=== PATIENT | male | born 1975 | race Caucasian/White ===

== ENCOUNTER 2017-12-30 11:44 | Emergency (ER) | payer MEDICAID, SELFPAY ==
[2017-12-30 11:46] VITALS: BP 115/66; PULSE 79; RESP 16; TEMP 36.6; O2SAT 96; BMI 24.3
--- NOTE | 2017-12-30 12:08 | RAD_ITS ---
STUDY: X-RAY - LEFT FOOT CLINICAL: Male, 42 years old. DROPPED LOG ACROSS METATARSALS. TECHNIQUE: 3 view(s) of the foot. COMPARISON: None. FINDINGS: Normal talus, calcaneus, and tarsal bones. Normal visualized subtalar, talonavicular, calcaneocuboid, tarsal and tarsometatarsal articulations. Normal metatarsi. Normal metatarsophalangeal joint of the great toe. Normal tibial and fibular sesamoid bones. Normal interphalangeal joint of the great toe. Normal phalanges of the great toe. Normal second through fifth metatarsophalangeal joints. Normal interphalangeal joints and phalanges of the lesser toes. The soft tissue structures are unremarkable. RAD/Foot min 3 Views IMPRESSION: Normal x-ray examination of the foot. Electronically Signed: Debby De La Cruz MD at 12:28 EST Tel , Service support ,
--- NOTE | 2017-12-30 12:32 | ED.VISSUMM ---
- ER Visit Summary Date of Service: 12/30/17 Chief Complaint: [Injury to left foot] History of Present Illness: The patient is a 42 M presents the emergency department with complaint of left foot injury that occurred yesterday around 1 PM. Patient states that he was carrying a large log when he accidentally dropped it onto his left foot. Patient having a hard time bearing weight secondary to pain.] Physical Examination: [Left foot-patient has some mild soft tissue swelling and faint erythema over the dorsal proximal portion of the left foot. No obvious deformity. Patient nervously intact distally. No pain at the ankle.] Test Results: [X-rays of the left foot showed no fractures] Emergency Department Course and Treatment: [Patient was given an Ervin wrap and crutches as well as a dose of naproxen.] Treatment Plan: [Patient to ice and elevate the extremity. Patient given a prescription for naproxen for pain. Patient advised to follow-up with primary care physician circulation assistant for no doc within next 5-7 days.] Disposition: [Discharged to home in stable condition] Impression: [Contusion left foot] This note was generated with [employer] dictation software. It may contain incorrect words, spelling, and punctuation that were not noted in review of the chart prior to signing ED Disposition - Plan for ED Patient: Chief Complaint: Lower Extremity Injury Referrals: Care Physician,No Primary [Primary Care Provider] -
--- NOTE | 2017-12-30 12:34 | ED.DEP ---
ED Disposition - Plan for ED Patient: Chief Complaint: Lower Extremity Injury Instructions: ED Contusion Foot Prescriptions: Naproxen [Naprosyn] 500 mg PO BID PRN #20 tab Referrals: Care Physician,No Primary [Primary Care Provider] - Trinidad Antunez MD [STAFF PHYSICIAN] - 5-7 Days
[2017-12-30] MEDS: Naproxen 500 MG Tablet PO (12:36)
[2017-12-30 12:44] VITALS: BP 117/75; PULSE 63; RESP 16; O2SAT 97
--- NOTE | 2017-12-30 12:44 | ED.RN ---
REVIEWED D/C INSTRUCTIONS, FOLLOW UP CARE, PRESCRIPTION, AND S/S THAT WOULD WARRANT A RETURN TO THE ED WITH PT. PT VERBALIZED AN UNDERSTANDING AND DENIES FURTHER QUESTIONS FOR THIS RN. PT SKIN P/W/D, RESP EVEN AND UNLABORED, PT A&O X 3, NO DISTRESS NOTED. PT ASSISTED OUT OF ED IN WHEELCHAIR.
== END 2017-12-30 12:46 | disposition home or self-care (01) ==
LOC: ED 12:17
PROVIDERS: Emergency Provider Emergency Medicine
DX: S90.32XA Contusion of left foot, initial encounter (principal); Z72.0 Tobacco use; W20.8XXA Other cause of strike by thrown, projected or falling object, initial encounter; Y93.89 Activity, other specified; Y92.89 Other specified places as the place of occurrence of the external cause; Y99.8 Other external cause status
CPT/HCPCS: 73630; 99284

== ENCOUNTER 2018-05-17 17:04 | Emergency (ER) | payer MEDICAID, SELFPAY ==
[2018-05-17 17:05] VITALS: BP 132/82; PULSE 106; RESP 16; TEMP 36.9; O2SAT 98; BMI 24.4
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
[2018-05-17] MEDS: Ketorolac 60 MG/2 ML Vial IM (17:31)
--- NOTE | 2018-05-17 17:35 | RAD_ITS ---
STUDY: X-RAY - LEFT SHOULDER REASON FOR EXAM: Male, 43 years old. TECHNIQUE: 4 view(s) of the shoulder. COMPARISON: None. FINDINGS: Normal glenohumeral articulation. Normal acromioclavicular joint. Normal acromion. Ill-defined sclerotic lesion humeral head and neck. Normal humeral head and visualized proximal humerus. The soft tissue structures are unremarkable. Normal visualized pulmonary apex. RAD/Shoulder min 2 Views IMPRESSION: Possible bone infarct or enchondroma left shoulder. Follow-up MRI or bone scan may be helpful if clinically warranted. Electronically Signed: Sherif Valdivia MD at 18:00 EDT , Service support ,
[2018-05-17 18:16] VITALS: PULSE 97; RESP 16; O2SAT 96
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
== END 2018-05-17 18:45 | disposition home or self-care (01) ==
PROVIDERS: Emergency Provider Emergency Medicine
DX: S49.92XA Unspecified injury of left shoulder and upper arm, initial encounter (principal); Y04.8XXA Assault by other bodily force, initial encounter; Y93.9 Activity, unspecified; Y92.9 Unspecified place or not applicable; Z72.0 Tobacco use
CPT/HCPCS: 73030; 96372; 99283

== ENCOUNTER 2018-06-06 14:55 | Emergency (ER) | payer MEDICAID, SELFPAY ==
[2018-06-06 14:56] VITALS: BP 142/85; PULSE 88; RESP 18; TEMP 36.7; O2SAT 99; BMI 24.4
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
--- NOTE | 2018-06-06 15:31 | ED.DEP ---
ED Disposition - Plan for ED Patient: Chief Complaint: Upper Extremity Injury Instructions: ED Sprain Shoulder Prescriptions: Naproxen [Naprosyn] 500 mg PO BID PRN #20 tablet Cyclobenzaprine [Flexeril] 10 mg PO TID PRN #20 tablet PRN Reason: Muscle Spasm Referrals: Care Physician,No Primary [Primary Care Provider] - Usman Hernandez DO [STAFF PHYSICIAN] -
[2018-06-06 15:41] VITALS: BP 135/70; PULSE 85; RESP 14; O2SAT 99
[2018-06-06] MEDS: Ketorolac 60 MG/2 ML Vial IM (15:42)
[2018-06-06] MEDS: Orphenadrine 60 MG/2 ML Ampul IM (15:43)
== END 2018-06-06 15:54 | disposition home or self-care (01) ==
LOC: ED 15:44
PROVIDERS: Emergency Provider Emergency Medicine
DX: S43.402D Unspecified sprain of left shoulder joint, subsequent encounter (principal); Y09 Assault by unspecified means; Z72.0 Tobacco use
CPT/HCPCS: 96372; 99283

== ENCOUNTER 2018-07-02 22:06 | Emergency (ER) | payer MEDICAID, SELFPAY ==
[2018-07-02 22:06] VITALS: BP 144/69; PULSE 85; RESP 16; TEMP 36.9; O2SAT 96; BMI 25.0
[2018-07-02 23:13] VITALS: BP 114/70; PULSE 87; RESP 16; O2SAT 97
--- NOTE | 2018-07-02 23:30 | ED.DCSUM_ITS ---
- ER Visit Summary Date of Service: 07/02/18 Chief Complaint: Nausea, vomiting and diarrhea History of Present Illness: The patient is a 43 M no senior past medical history. No prior abdominal surgeries except for hernia repair. Patient states today around 3 PM started having nausea, vomiting and diarrhea. Abdominal cramping. She has been able to really hold very little fluids or food down since that time. He now has developed a mild headache. He feels dehydrated he states. Denies any fever. Patient states she has had about 6 episodes of vomiting and diarrhea since 3 PM. has similar symptoms. Physical Examination: Vital signs are stable afebrile. H EENT exam mildly dry mucous members. Neck nontender no lymphadenopathy. No meningismus. Lungs clear to auscultation bilaterally. Heart regular rhythm no murmur. Abdomen soft, nontender, nondistended normal bowel sounds no peritoneal signs. No masses. No obstruction. Moving all 4 extremities. Neurovascular intact. Back nontender. Skin no rashes. Neurologic exam awake alert no focal motor deficits. Test Results: None Emergency Department Course and Treatment: Patient treated as a viral gastroenteritis. A liter fluid. IV Zofran. P.o. challenge. If he is doing well be discharged home on repeat exam. Treatment Plan: Zofran home pack. Fluids and rest. Return if unable to keep fluids down. Disposition: Discharge Impression: Acute viral gastroenteritis Mild dehydration This note was generated with [employer] dictation software. It may contain incorrect words, spelling, and punctuation that were not noted in review of the chart prior to signing ED Disposition - Plan for ED Patient: Chief Complaint: Nausea/Vomiting/Diarrhea Referrals: Care Physician,No Primary [Primary Care Provider] -
--- NOTE | 2018-07-02 23:31 | DCINST.ED_ITS ---
ED Disposition - Plan for ED Patient: Disposition: Home or Assisted Living Chief Complaint: Nausea/Vomiting/Diarrhea Instructions: ED Gastroenteritis Viral Referrals: Yvonne Aguilar [NON-STAFF] - 1-2 Days if not improving Additional Instructions: Plenty of fluids and rest. Zofran as needed for nausea. [place] diet increase slowly as tolerated. Return if unable to keep fluids down or feeling worse.
[2018-07-02] MEDS: Ondansetron ODT 4 MG Tablet PO (23:57)
[2018-07-02] MEDS: 0.9% Normal Saline 1,000 ML 1000 ML IV (23:57)
[2018-07-02] MEDS: Ondansetron 4 MG/2 ML Vial IV (23:57)
--- NOTE | 2018-07-03 00:04 | ED.RN ---
received 1 L NS
== END 2018-07-03 00:13 | disposition home or self-care (01) ==
LOC: ED 23:39
PROVIDERS: Emergency Provider Emergency Medicine
DX: A08.4 Viral intestinal infection, unspecified (principal); E86.0 Dehydration; Z72.0 Tobacco use; Z79.899 Other long term (current) drug therapy
CPT/HCPCS: 96374; 99283; J7030; A4216; J2405

== ENCOUNTER 2018-09-13 16:58 | Emergency (ER) | payer MEDICAID, SELFPAY ==
[2018-09-13 16:59] VITALS: BP 121/79; PULSE 85; PULSE 86; RESP 17; TEMP 36.8; O2SAT 95; BMI 25.9
--- NOTE | 2018-09-13 19:13 | ED.VISSUMM ---
- ER Visit Summary Date of Service: 09/13/18 Chief Complaint: Back pain History of Present Illness: The patient is a 43 M presenting with back pain. Patient states it started this morning. He states he has been sleeping on an air mattress. He states this morning he woke up and the air mattress was deflated. He has taken Tylenol and ibuprofen at home. He denies bowel or bladder incontinence. Denies numbness or weakness. He is able to ambulate with pain. Denies other complaints. Physical Examination: Vitals are stable. Patient is afebrile. Alert no acute distress. HEENT exam is unremarkable. Neck is nontender Lungs are clear and equal bilaterally. Heart is regular rate and rhythm. Abdomen is soft nontender nondistended. Back: Left paraspinal thoracic muscle tenderness, no midline tenderness Extremities are unremarkable. Skin is warm and dry. No focal neurologic deficit. Normal strength and sensation Remainder of exam is unremarkable. Emergency Department Course and Treatment: Patient is given Toradol IM. Left rib series shows no acute process. On reevaluation, patient feels improved. He is given a prescription for naproxen. Advised to follow-up with Dr. Leahy conformal pad former for no doc. Advised return to ED for worsening complaints. Disposition: Discharge home Impression: Acute back pain This note was generated with [employer] dictation software. It may contain incorrect words, spelling, and punctuation that were not noted in review of the chart prior to signing ED Disposition - Plan for ED Patient: Chief Complaint: Back Instructions: ED Neck Back Pain General Prescriptions: Naproxen [Naprosyn] 500 mg PO BID PRN #20 tablet Referrals: Dutch Leahy MD [STAFF PHYSICIAN] -
--- NOTE | 2018-09-13 19:16 | ED.DCSUM_ITS ---
- ER Visit Summary Date of Service: 09/13/18 Chief Complaint: Back pain History of Present Illness: The patient is a 43 M presenting with back pain. Patient states it started this morning. He states he has been sleeping on an air mattress. He states this morning he woke up and the air mattress was deflat ed. He has taken Tylenol and ibuprofen at home. He denies bowel or bladder incontinence. Denies numbness or weakness. He is able to ambulate with pain. Denies other complaints. Physical Examination: Vitals are stable. Patient is afebrile. Alert no acute distress. HEENT exam is unremarkable. Neck is nontender Lungs are clear and equal bilaterally. Heart is regular rate and rhythm. Abdomen is soft nontender nondistended. Back: Left paraspinal thoracic muscle tenderness, no midline tenderness Extremities are unremarkable. Skin is warm and dry. No focal neurologic deficit. Normal strength and sensation Remainder of exam is unremarkable. Emergency Department Course and Treatment: Patient is given Toradol IM. Left rib series shows no acute process. On reevaluation, patient feels improved. He is given a prescription for naproxen. Advised to follow-up with Dr. Leahy superintendent concrete mixing [employer] for no doc. Advised return to ED for worsening complaints. Disposition: Discharge home Impression: Acute back pain This note was generated with [employer] dictation software. It may contain incorrect words, spelling, and punctuation that were not noted in review of the chart prior to signing ED Disposition - Plan for ED Patient: Chief Complaint: Back Instructions: ED Neck Back Pain General Prescriptions: Naproxen [Naprosyn] 500 mg PO BID PRN #20 tablet Referrals: Dutch Leahy MD [STAFF PHYSICIAN] -
[2018-09-13] MEDS: Ketorolac 60 MG/2 ML Vial IM (19:20)
--- NOTE | 2018-09-13 19:20 | RAD_ITS ---
STUDY: X-RAY - UNILATERAL RIBS ( LEFT ) WITH CHEST REASON FOR EXAM: Male, 43 years old. Left rib pain after waking up this morning. TECHNIQUE - RIBS: 4 view(s) of the ribs. TECHNIQUE - CHEST: 1 COMPARISON: None. FINDINGS - RIBS: Normal visualized ribs without a demonstrated fracture. FINDINGS - CHEST: The heart is mildly enlarged. Hilar and mediastinal shadows are normal. There is no pleural effusion, pulmonary consolidation, or pneumothorax. There is no osseous abnormality. RAD/Ribs Uni Min 3V w/PA Chest IMPRESSION: RIBS: Normal x-ray examination of the ribs. CHEST: Normal x-ray examination of the chest. Electronically Signed: Isi Roth MD at 19:59 EDT Tel , Service support ,
[2018-09-13 20:23] VITALS: BP 139/81; PULSE 76; RESP 18; O2SAT 96
--- NOTE | 2018-09-13 20:23 | ED.DEP ---
ED Disposition - Plan for ED Patient: Chief Complaint: Back Instructions: ED Neck Back Pain General Prescriptions: Naproxen [Naprosyn] 500 mg PO BID PRN #20 tablet Referrals: Dutch Leahy MD [STAFF PHYSICIAN] -
== END 2018-09-13 20:41 | disposition home or self-care (01) ==
LOC: ED 18:43
PROVIDERS: Emergency Provider Emergency Medicine
DX: M54.6 Pain in thoracic spine (principal); Z72.0 Tobacco use
CPT/HCPCS: 71101; 96372; 99282

== ENCOUNTER 2018-09-14 10:54 | Emergency (ER) | payer MEDICAID, SELFPAY ==
[2018-09-14 10:54] VITALS: BP 145/89; PULSE 80; RESP 14; TEMP 36.8; O2SAT 93; BMI 30.8
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
[2018-09-14 13:07] VITALS: BP 139/70; PULSE 58; RESP 14; O2SAT 98
== END 2018-09-14 13:07 | disposition home or self-care (01) ==
PROVIDERS: Emergency Provider Emergency Medicine
DX: S16.1XXA Strain of muscle, fascia and tendon at neck level, initial encounter (principal); Z79.899 Other long term (current) drug therapy; V43.62XA Car passenger injured in collision with other type car in traffic accident, initial encounter; Y93.I9 Activity, other involving external motion; Y92.410 Unspecified street and highway as the place of occurrence of the external cause; Y99.8 Other external cause status
CPT/HCPCS: 72125; 99284

== ENCOUNTER 2019-10-24 13:06 | Emergency (ER) | payer MEDICAID, SELFPAY ==
[2019-10-24 13:07] VITALS: BP 123/79; PULSE 82; RESP 17; TEMP 36.8; O2SAT 98; BMI 29.1
[2019-10-24 14:10] VITALS: RESP 18
--- NOTE | 2019-10-24 14:25 | ED.VISSUMM ---
- ER Visit Summary Date of Service: 10/24/19 Chief Complaint: [Soft tissue swelling to right groin] History of Present Illness: The patient is a 44 M [to the emergency department with a swelling to the right groin that he noticed yesterday. Patient states that he gets abscesses in his armpits frequently but is never had one in his groin. He denies any fevers. He denies any trauma to the area.] Physical Examination: [HEENT-PERRLA, EOMI. Cranial nerves II through XII grossly intact. TMs clear. Mucous membranes moist. No adenopathy. Cardiovascular-regular rate and rhythm without murmur or ectopy Lungs-clear to auscultation, chest wall stable without crepitus or subcu emphysema Abdomen-normoactive bowel sounds, soft, nontender, no rebound or rigidity, no peritoneal signs. Extremities-intact ?4, normal range of motion, normal pulses, atraumatic. Right groin-patient has soft tissue swelling consistent with an abscess with some faint erythema. Area is indurated and not much fluctuance.] Test Results: [None indicated] Emergency Department Course and Treatment: [Patient was consented for incision and drainage of suspected abscess. I had a discussion with him about antibiotics only versus attempted I&D given that this is suspected to be quite early and may just be inflammatory at this time. Patient would like to proceed with incision and drainage. Area sterilely draped and prepped. Locally anesthetized with 1% lidocaine total 4 cc. Using an 11 blade a 2 cm incision was made with only small amount of purulent debris obtained. Used curved hemostats undermined the soft tissues. I irrigated the cavity with normal saline.] She was started on Keflex and Bactrim. Treatment Plan: [Will be treated with Keflex and Bactrim. Patient will be referred to Dr. Govea for follow-up] Disposition: [Discharged home in stable condition.] Impression: [Right groin abscess with incision and drainage] This note was generated with [employer] dictation software. It may contain incorrect words, spelling, and punctuation that were not noted in review of the chart prior to signing ED Disposition - Plan for ED Patient: Referrals: Care Physician,No Primary [Primary Care Provider] -
--- NOTE | 2019-10-24 14:28 | DCINST.ED_ITS ---
ED Disposition - Plan for ED Patient: Instructions: ABSCESS, Incision and Drainage Prescriptions: Smz/Tmp Ds [Bactrim Ds] 1 tab PO BID #20 tab Prescription Printed Cephalexin [Keflex] 500 mg PO Q6 #40 cap Prescription Printed Hydrocodone Bitart/Apap 5-325 [[place] 5MG-325MG] 1 tab PO Q4H PRN PRN 2 Days #10 tab PRN Reason: Pain Prescription Printed Referrals: Care Physician,No Primary [Primary Care Provider] - Francisco Javier Govea MD [STAFF PHYSICIAN] - 3-5 Days
[2019-10-24] MEDS: Cephalexin 250 MG Capsule 500 MG PO (14:52)
[2019-10-24 14:53] VITALS: RESP 18
[2019-10-24] MEDS: Smz/Tmp Ds Tablet 1 TABLET PO (14:53)
== END 2019-10-24 14:54 | disposition home or self-care (01) ==
LOC: ED 13:46
PROVIDERS: Emergency Provider Emergency Medicine
DX: L02.214 Cutaneous abscess of groin (principal); Z72.0 Tobacco use
CPT/HCPCS: 10060; 99283

== ENCOUNTER 2020-04-20 09:11 | Emergency (ER) | payer MEDICAID, SELFPAY ==
[2020-04-20 09:14] VITALS: BP 135/94; PULSE 90; RESP 17; TEMP 36.6; O2SAT 94; BMI 27.8
--- NOTE | 2020-04-20 09:33 | ED.VIS.GEN ---
History of Present Illness Chief Complaint: Abscess Narrative: Patient presenting for evaluation due to concern for an abscess of the right anterior thigh. Patient reports that over the course of about the last 2 to 3 days he has had development of this. He states that it initially started as a spider bite but then he reports that he had some spreading redness, increased pain, and he feels as if there is a pustule coming to the surface. Patient states that he has a moderate amount of pain that is worse with walking and palpation. Patient reports that he has had multiple prior similar episodes in the past, that have required drainage. He denies any fevers. Denies any underlying history of immunosuppression or diabetes. He denies any constitutional symptoms such as nausea vomiting generalized malaise. Review of systems otherwise negative. Past Medical History - Allergies and Home Meds Allergies/Adverse Reactions: Allergies bacitracin [From Neosporin ([id number])] Allergy (Verified 04/20/20 09:13) Rash bacitracin zinc [From Neosporin ([id number]-[id number])] Allergy (Verified 04/20/20 09:13) Rash neomycin sulfate [From Neosporin (vhi-iuz-dkicn)] Allergy (Verified 04/20/20 09:13) Rash polymyxin B [From Neosporin ([id number])] Allergy (Verified 04/20/20 09:13) Rash Primary Care Physician: Alon Gordon MD [Primary Care Provider] - Prior records reviewed: Yes Past Medical History: - - Prior history of cutaneous abscesses requiring drainage Smoking Status: Current every day smoker Review of Systems All systems negative except as indicated General: Denies: Chills, Fever, Sweats Eyes: Denies: Visual changes - bilaterally, Diplopia ENT: Denies: Rhinorrhea, Sore throat Cardiovascular: Denies: Chest pain, Palpitations Respiratory: Denies: Dyspnea, Cough, Dyspnea on exertion Gastrointestinal: Denies: Abdominal pain, Nausea, Vomiting, Diarrhea, Melena, Hematochezia Genitourinary: Denies: Dysuria, Hematuria, Frequency Musculoskeletal: Denies: Back pain, Extremity Pain Skin: Reports: Abscess Neurological: Denies: Headache, Weakness, Numbness Physical Exam Vital Signs/Narrative: Vital Signs Temp Pulse Resp BP Pulse Ox 04/20/20 09:14 97.8 F 90 17 135/94 H 94 Inital Vital Signs reviewed: Yes General: Well nourished, Well developed, No Acute Distress Head: Normocephalic, Atraumatic Eyes: EOMI ENT: Moist mucous membranes Cardiovascular: Regular rate, Regular rhythm Respiratory: No distress Extremities: - - Examination of the patient's right thigh shows a pustule on the anterior portion of the thigh with approximately 4 cm of surrounding erythema. There is induration in the erythematous area and potentially some fluctuance in the central portion. No lymphangitic streaking. No subcutaneous emphysema. Normal range of motion of the knee and hip. Normal distal sensation and pulses. Skin: Normal color, No rash Neurological: Alert, Oriented x3 Psychological: Normal affect Diagnostic/Tx/Re-eval - Medical Decision Making Patient presented with a soft tissue skin infection of the anterior thigh. There does appear to potentially be some fluctuance in the central portion of this, so incision and drainage was performed as in the procedure note. This also seems to be associated with a cellulitis, patient will be placed on a course of Bactrim. He will follow-up with primary care. Procedures Procedure(s): Patient was verbally consented for incision and drainage procedure of the right thigh cutaneous abscess. Area was prepped with a alcohol prep and then was draped in a sterile fashion. 5 cc of 1% lidocaine were utilized for anesthesia and a field block technique with good anesthesia being obtained. 11 blade scalpel was utilized and a small cruciate incision was placed over top of the pustule and area of fluctuance. A very scant amount of purulent material was expressed. There was bloody expression after that. The wound was explored with hemostats, and was found to be very shallow without any tunneling. Wound was then irrigated under pressure with sterile saline. Wound was dressed with an absorbent dressing, patient tolerated this well. ED Disposition - Plan for ED Patient: Disposition: Home or Assisted Living Diagnosis: Abscess of right thigh Instructions: ED Abscess Incision And Drainage Prescriptions: Smz/Tmp Ds [Bactrim Ds] 1 tab PO BID #14 tab Prescription Printed Naproxen [Naprosyn] 500 mg PO BID #14 tab Prescription Printed Referrals: Alon Gordon MD [Primary Care Provider] - 2 Days for wound check
[2020-04-20 09:37] VITALS: BP 135/94; PULSE 90; RESP 17; TEMP 36.6; O2SAT 94
== END 2020-04-20 09:52 | disposition home or self-care (01) ==
LOC: ED 09:50
PROVIDERS: Emergency Provider Emergency Medicine; PCP Family Medicine
DX: L02.415 Cutaneous abscess of right lower limb (principal); F17.200 Nicotine dependence, unspecified, uncomplicated
CPT/HCPCS: 10060; 99282

== ENCOUNTER 2021-04-08 10:54 | Emergency (ER) | payer MEDICAID, SELFPAY ==
[2021-04-08 10:55] VITALS: BP 136/89; PULSE 67; RESP 18; TEMP 36.6; O2SAT 96; BMI 27.5
[2021-04-08 10:57] VITALS: BP 136/89; PULSE 67; PULSE 72; RESP 18; TEMP 36.6; O2SAT 95; O2SAT 97
--- NOTE | 2021-04-08 11:12 | EX.ED.VIS.FL ---
HPI History of Present Illness Chief Complaint: Complaint Narrative Narrative: Patient presents with dysuria and frequency. This is been ongoing for 2 to 3 days. He is denying any penile discharge. He has no testicular pain. He has no pain with bowel movements he has no rectal pain. He has no flank pain. He is denying fevers or chills or any abdominal pain. He does feel like he completely empties his bladder after urinating. [facility] Medical History (Updated 04/08/21 @ 12:[address] Alli Howard MD) GERD (gastroesophageal reflux disease) Home Medications omeprazole 20 mg PO DAILY 04/08/21 [History Last Taken Unknown] sulfamethoxazole-trimethoprim [Bactrim DS] 1 tab PO BID #14 tab 04/08/21 [Rx Last Taken Unknown] Allergy/AdvReac Type Severity Reaction Status Date / Time bacitracin Allergy Rash Verified 04/08/21 10:55 [From Neosporin ([id number])] bacitracin zinc Allergy Rash Verified 04/08/21 10:55 [From Neosporin (gcl-pen-[id number])] neomycin sulfate Allergy Rash Verified 04/08/21 10:55 [From Neosporin (guf-dnb-rflue)] polymyxin B Allergy Rash Verified 04/08/21 10:55 [From Neosporin (sng-nzc-[id number])] Social History Smoking Status: Current every day smoker ROS ROS ED ROS Narrative Past medical history: Reviewed Medications: Reviewed Social history: Noncontributory Review of systems: All systems negative except as indicated General: No fever Eyes: No visual changes ENT: No upper airway congestion, normal voice Neck: No neck pain Cardiovascular: No chest pain Respiratory: No shortness of breath or cough Gastrointestinal: No abdominal pain, nausea vomiting or diarrhea Genitourinary: Dysuria and frequency, some urgency is also present no hematuria Musculoskeletal: Denies myalgias no difficulty with ambulation Skin: No rash Neurological: No memory loss, confusion or any focal weakness Psych: No recent behavioral changes Hematologic: No easy bleeding or easy bruising EXAM Physical Exam Narrative Exam Narrative: Physical exam General: Patient does not appear in any distress Head: Normocephalic, Atraumatic ENT: Moist mucous membranes Cardiovascular: Regular rate, Regular rhythm Respiratory: No distress, CTA bilaterally Abdomen: Soft, Nontender, Nondistended. No suprapubic pain : Normal external genitalia no penile discharge. No testicle pain to palpation. Back: Nontender, Normal Inspection. Negative for: CVA tenderness Extremities: Nontender, No edema Skin: Normal color, No rash Neurological: Alert, Normal Strength, Normal Sensation Psychological: Normal affect Const Vital Signs: 04/08/21 10:55 04/08/21 10:57 Temperature 97.9 F 97.9 F Temperature Source Temporal Axillary Pulse Rate 67 72 Respiratory Rate 18 18 Blood Pressure 136/89 H 136/89 H Blood Pressure Mean 104 104 Pulse Ox 96 95 Oxygen Delivery Method Room Air Room Air MDM MDM MDM Narrative Medical decision making narrative: Patient has a slight urinary tract infection. I specifically asked him about chlamydia or gonorrhea he is denying any risk factors. He does not want treated for this but he is agreeable to at least getting testing. At this time there is no evidence of prostatitis, kidney stones, or epididymitis. Lab Data Labs: Laboratory Results - last 24 hr 04/08/21 04/08/21 11:42 11:42 Urine Color Yellow Urine Clarity Clear Urine pH 7.0 Ur Specific [place] 1.010 Urine Protein Negative Urine Glucose (UA) Normal Urine Ketones Negative Urine Occult Blood 10 H Urine Nitrite Negative Urine Bilirubin Negative Urine Urobilinogen 1 H Ur Leukocyte Esterase 25 H Urine RBC 0 SEEN Urine WBC 0 SEEN Ur Squamous Epith Cells 0 SEEN Urine Bacteria 0 SEEN Urine Mucus 0 SEEN Chlamydia DNA (KARLOS) Cancelled N.gonorrhoeae DNA (KARLOS) Cancelled Discharge Plan Triage Chief Complaint: Complaint ED Provider: Alli Howard Dx/Rx/DC Orders Clinical Impression: Urinary tract infection Instructions: ED Bladder Infection, Male (Adult) Prescriptions: New sulfamethoxazole-trimethoprim [Bactrim DS] 800-160 mg tablet 1 tab PO BID Qty: 14 RF: 0 No Action omeprazole 20 mg capsule,delayed release(DR/EC) 20 mg PO DAILY RF: 0 Primary Care Provider: Alon Gordon Referrals: Alon Gordon MD [Primary Care Provider] - 2 Days Disposition Disposition: Home, self care
[2021-04-08 11:48] LABS: Bacteria 0 SEEN /hpf (None Seen); Mucous, Urine 0 SEEN /hpf (<or=2+); Red Blood Cells-Urine 0 SEEN /hpf (0-5); Squamous Epithelial Cells - UA 0 SEEN /hpf (0-5); White Blood Cells 0 SEEN /hpf (0-5)
[2021-04-08 11:50] LABS: Color, Urine Yellow (Yellow); Glucose, Dipstick Normal (Normal); Ketone-Dipstick Negative (Negative); Leukocyte Esterase-Dipstick 25 /ul (Negative); Nitrite-Dipstick Negative (Negative); Occult Blood-Urine 10 /ul (Negative); Protein-Dipstick Negative (Negative); Urine Bilirubin Dipstick Negative (Negative); Urine Clarity Clear (Clear); Urine Urobilinogen 1 mg/dl (Normal)
[2021-04-08 15:22] LABS: Chlamydia Trachomatis by PCR Negative (Negative); Neisserai gonorrhoeae by PCR Negative (Negative); Probe Check PASS; Sample Adequacy Control PASS; Specimen Processing Control PASS
== END 2021-04-08 12:40 | disposition home or self-care (01) ==
PROVIDERS: Emergency Provider Emergency Medicine; PCP Family Medicine
DX: N39.0 Urinary tract infection, site not specified (principal); K21.9 Gastro-esophageal reflux disease without esophagitis; Z79.899 Other long term (current) drug therapy; F17.200 Nicotine dependence, unspecified, uncomplicated
CPT/HCPCS: 81001; 87491; 87591; 99282

== ENCOUNTER 2021-11-15 14:52 | Emergency (ER) | payer MEDICAID, SELFPAY ==
[2021-11-15 14:53] VITALS: BP 130/88; PULSE 91; RESP 16; TEMP 36.6; O2SAT 94; BMI 28.8
--- NOTE | 2021-11-15 15:05 | RAD_ITS ---
INDICATION: INJURY 4TH TOE EXAMINATION/TECHNIQUE: X-RAY - LEFT XR Foot Min 3 Views 3 VIEWS COMPARISON: 12/30/2017. FINDINGS: SOFT TISSUES: No soft tissue swelling or gas. No radiopaque foreign body. BONES/JOINTS: No acute fracture or subluxation.. Normal alignment. Preservation of the joint space.. No sclerotic or destructive changes observed. RAD/Foot min 3 Views IMPRESSION: No evidence of acute osseous abnormality. Electronically Signed: Lawrence Leon MD at 15:43 EST Tel , Service support ,
--- NOTE | 2021-11-15 16:24 | EDS_ITS ---
HPI History of Present Illness Chief Complaint: Lower Extremity Injury Informant: patient Narrative Narrative: Patient states that he got his left fourth toe caught under 1 of those chairs that have the legs connected front to back. No other injury. There is discomfort with weightbearing or motion. Rest makes it better. He is not on anticoagulation. [facility] Medical History GERD (gastroesophageal reflux disease) Home Medications omeprazole 20 mg PO DAILY 04/08/21 [History Last Taken Unknown] naproxen 500 mg PO BID #14 tab 11/15/21 [Rx Last Taken Unknown] Allergy/AdvReac Type Severity Reaction Status Date / Time bacitracin Allergy Rash Verified 11/15/21 14:53 [From Neosporin (gih-xno-qrorw)] bacitracin zinc Allergy Rash Verified 11/15/21 14:53 [From Neosporin (gtw-mlw-ttlea)] neomycin sulfate Allergy Rash Verified 11/15/21 14:53 [From Neosporin (lbv-swa-slxsj)] polymyxin B Allergy Rash Verified 11/15/21 14:53 [From Neosporin ([id number]-zuh-[id number])] Social History Smoking Status: Current every day smoker tobacco type: cigarettes ROS ROS ED Constitutional Constitutional ED: Denies fever(s) Musculoskeletal Musculoskeletal: Reports other Details: Left fourth toe pain. See history of present illness. ; Denies back pain Integumentary Reports other Details: Contusion left fourth toe ; Denies abscess or Abrasions Hematologic/Lymphatic Hematologic/Lymphatic: Denies easy bleeding or easy bruising EXAM Physical Exam Const Vital Signs: 11/15/21 14:53 Temperature 97.9 F Temperature Source Temporal Pulse Rate 91 Respiratory Rate 16 Blood Pressure 130/88 H Blood Pressure Mean 102 Pulse Ox 94 Oxygen Delivery Method Room Air Positive well nourished and well developed General Appearance ED: well developed and NAD Resp normal respiratory effort Extremity Extremity Narrative: Patient has contusion and very mild swelling of the distal portion of the left fourth toe. No deformity rotational or angular. No p roximal tenderness. No sign of infection. Neuro Sensorium / Orientation: alert Skin Skin Narrative: Contusion to left fourth toe but no erythema or warmth. MDM MDM MDM Narrative Medical decision making narrative: X-ray looked at by me and read by radiology shows no sign of acute fracture or dislocation. Patient will be given a few Naprosyn for pain. He was told ice rest and elevation are appropriate. Radiography Diagnostic Testing: Clinical Impression(s) from Imaging Studies Foot X-Ray 11/15/21 15:05 IMPRESSION: No evidence of acute osseous abnormality. Electronically Signed: Lawrence Leon MD at 15:43 EST Tel , Service support , Discharge Plan Triage Chief Complaint: Lower Extremity Injury ED Provider: Rickey Villaseñor Dx/Rx/DC Orders Clinical Impression: Contusion of fourth toe, left Instructions: ED Crush Injury, Foot/Toe Prescriptions: New naproxen 500 MG tablet 500 mg PO BID Qty: 14 RF: 0 No Action omeprazole 20 mg capsule,delayed release(DR/EC) 20 mg PO DAILY RF: 0 Primary Care Provider: Alon Gordon Referrals: Alon Gordon MD [Primary Care Provider] - 10-14 Days if not better Disposition Disposition: Home, Self Care
== END 2021-11-15 16:34 | disposition home or self-care (01) ==
PROVIDERS: Emergency Provider Emergency Medicine; PCP Family Medicine
DX: S90.122A Contusion of left lesser toe(s) without damage to nail, initial encounter (principal); W23.0XXA Caught, crushed, jammed, or pinched between moving objects, initial encounter; Y92.9 Unspecified place or not applicable; Y99.9 Unspecified external cause status; K21.9 Gastro-esophageal reflux disease without esophagitis; F17.210 Nicotine dependence, cigarettes, uncomplicated; Z79.1 Long term (current) use of non-steroidal anti-inflammatories (NSAID)
CPT/HCPCS: 73630; 99282

== ENCOUNTER 2021-12-28 12:20 | Emergency (ER) | payer MEDICAID, SELFPAY ==
[2021-12-28 12:21] VITALS: BP 143/92; PULSE 105; RESP 18; TEMP 35.8; O2SAT 95; BMI 27.1
--- NOTE | 2021-12-28 13:54 | CT_ITS ---
STUDY: CT ABDOMEN AND PELVIS WITH CONTRAST REASON FOR EXAM: Male, 46 years old. Perirectal abscess RADIATION DOSAGE (If Supplied By Facility): CTDIvol = ( 13.40 ) mGy, DLP = ( 996.02 ) mGycm TECHNIQUE: Transaxial images were obtained from the dome of the diaphragm to the symphysis pubis without oral contrast. IV 100mL Isovue-300 was administered. Sagittal and coronal images were reconstructed. Individualized dose optimization techniques were used for this CT. COMPARISON: None. FINDINGS: Minimal degree of increased markings at the left lung base suggestive of either linear atelectasis and/or scar The visualized portions of the heart are within normal limits. Normal liver. Normal gallbladder and extrahepatic biliary system. Normal spleen. Normal pancreas. Normal bilateral adrenal glands. Normal right kidney. There is a 3.9 cm x 3.8 cm cyst in the lateral inferior pole of the left kidney. There is a small hiatal hernia. Normal small intestine. Normal colon. The appendix is visualized and appears normal. Normal abdominal aorta. Normal inferior vena cava. Normal retroperitoneum. Normal urinary bladder. Mild degree of increased markings in the subcutaneous fat along the medial aspect of the right gluteal area in the posterior perineum. There is evidence of a 2.3 cm x 1.3 cm well-defined hypodensity within the soft tissue swelling suggestive of a small abscess. Moderate sized bilateral inguinal hernias. There is a 1.7 cm cyst in the L2 vertebrae posteriorly. CT/Abdomen/Pelvis W IV Cont ONLY IMPRESSION: 2.3 cm x 1.3 cm well-defined hypodensity in the medial aspect of the right gluteal region along the posterior aspect of the perineum suggestive of a small abscess. Moderate size bilateral inguinal hernias containing fat. Electronically Signed: Toño Marroquin MD at 15:07 EST ,
[2021-12-28] MEDS: 0.9% Normal Saline 1,000 ML 1000 ML IV (14:13)
[2021-12-28] MEDS: Morphine 4 MG/ML Syringe IV (14:13)
[2021-12-28] MEDS: Ondansetron 4 MG/2 ML Vial IV (14:13)
[2021-12-28 14:15] VITALS: BP 121/72; PULSE 71; RESP 14; O2SAT 96
[2021-12-28 14:16] LABS: Absolute Lymphocyte Count 2.29 X10^3/uL (0.83-4.51); Absolute Neutrophil Count 10.3 X10^3/uL (2.0-7.7); Basophil# 0.07 X10^3/uL; Basophil% 0.5 % (0-1); Eosinophil# 0.37 X10^3/uL; Eosinophils% 2.6 % (0-5); Hematocrit 47.9 % (40-54); Hemoglobin 17.1 g/dL (13.0-16.5); Lymphocyte # 2.29 X10^3/ul (0.83-4.51); Lymphocyte % 15.9 % (19-41); Mean Corp Hgb Conc 35.7 g/dL (32-36); Mean Corpuscular Hgb 31.5 pg (27.0-32.0); Mean Corpuscular Volume 88.4 fL (80-94); Mean Platelet Vol. 11.7 fl (6.2-12.0); Monocyte# 1.35 X10^3/uL; Monocyte% 9.4 % (0-10); NRBC Flagged by Analyzer 0 % (0-5); Neutrophil # 10.29 X10^3/uL (2.7-7.7); Neutrophil % 71.2 % (47-70); Platelet Count 216 K/mm3 (150-450); RBC Distribution Width CV 12.5 % (11.6-14.6); RBC Distribution Width SD 40.4 fl (35.1-43.9); Red Blood Count 5.42 M/mm3 (4.6-6.2); White Blood Count 14.4 K/mm3 (4.4-11.0)
[2021-12-28 14:30] LABS: Anion Gap 5 (5-15); BUN 6 mg/dL (7-18); BUN/Creat Ratio 7.2 RATIO (10-20); Calcium,Total 9.9 mg/dL (8.5-10.1); Chloride 109 mmol/L (98-107); Creatinine, Serum 0.84 mg/dL (0.70-1.30); EST Glomerular Filtration Rate 105 mL/min (>60); Est Glom Filt Rate - Afr Amer 127 mL/min (>60); Estimated Creatinine Clearance 121.89 ml/min; Glucose 93 mg/dL (74-106); Potassium 3.8 mmol/L (3.5-5.1); Sodium Level 138 mmol/L (136-145)
[2021-12-28 14:41] LABS: Lactic Acid 0.8 mmol/L (0.4-1.9)
--- NOTE | 2021-12-28 15:37 | EDS_ITS ---
HPI History of Present Illness Chief Complaint: Abscess Informant: patient Narrative Narrative: Patient is a 46-year-old male with history of perirectal abscesses presenting with pain, swelling and redness of his perirectal area for the past 2 days. He states he cannot sit down since yesterday. Is not taking anything for pain prior to arrival. He states he often times will get these out but they will pop and drain on their own. Sometimes he is required antibiotics. He denies any systemic symptoms such as fever or chills. No other complaints at this time. He is not a diabetic. Patient denies any difficulty urinating or defecation. Prior similar symptoms: Yes PFSH PFSH Medical History GERD (gastroesophageal reflux disease) Home Medications omeprazole 20 mg PO DAILY 04/08/21 [History Last Taken Unknown] naproxen 500 mg PO BID #14 tab 11/15/21 [Rx Last Taken Unknown] clindamycin HCl 300 mg PO 4X/DAY #80 cap 12/28/21 [Rx Last Taken Unknown] oxycodone-acetaminophen [Percocet] 1 tab PO Q6H PRN 3 Days #10 tab 12/28/21 [Rx Last Taken Unknown] Allergy/AdvReac Type Severity Reaction Status Date / Time bacitracin Allergy Rash Verified 12/28/21 12:21 [From Neosporin ([id number])] bacitracin zinc Allergy Rash Verified 12/28/21 12:21 [From Neosporin ([id number]-[id number])] neomycin sulfate Allergy Rash Verified 12/28/21 12:21 [From Neosporin ([id number]-yzc-jzhjo)] polymyxin B Allergy Rash Verified 12/28/21 12:21 [From Neosporin ([id number])] Social History Smoking Status: Current every day smoker tobacco type: cigarettes ROS ROS ED Constitutional Constitutional ED: Denies chills or fever(s) Eyes Eyes: Denies change in vision Cardiovascular Cardiovascular: Denies chest pain Respiratory/Chest Respiratory/Chest: Denies cough or dyspnea Gastrointestinal Gastrointestinal: Denies abdominal pain, constipation, diarrhea, nausea or vomiting Genitourinary Genitourinary ED: Denies dysuria Musculoskeletal Musculoskeletal: Denies arthralgias or myalgias Integumentary Reports abscess Neurologic Neurologic: Denies headache(s) or weakness EXAM Physical Exam Const Vital Signs: 12/28/21 12:21 12/28/21 14:15 Temperature 96.4 F L Temperature Source Temporal Pulse Rate 105 H 71 Respiratory Rate 18 14 Blood Pressure 143/92 H 121/72 H Blood Pressure Mean 109 88 Pulse Ox 95 96 Oxygen Delivery Method Room Air Room Air Positive well nourished and well developed Constitutional Narrative: Uncomfortable. General Appearance ED: well developed and NAD HEENT Reports moist mucous membranes Negative for trauma Eyes PERRL and EOMs intact bilaterally Neck supple Chest Wall inspection of chest normal Resp normal respiratory effort and clear to auscultation bilaterally Cardio regular rate, regular rhythm and no murmurs GI normal to inspection, nondistended, normoactive bowel sounds Back/Spine no CVA tenderness Extremity normal to inspection General Extremety ED: Negative for edema or tenderness General Extremity: Negative for edema Neuro oriented x3 Sensorium / Orientation: alert Motor Exam: Negative for general weakness Psych mental status grossly normal Skin Skin Narrative: Patient has 2 cm x 2 cm area of erythema and induration with a central area of fluctuance in the right buttocks just next to the rectum. It does not seem to extend into the rectum. There is a slight amount of streaking towards the perineum but there is no involvement of the perineum or the testicles. No active drainage appreciated. MDM MDM MDM Narrative Medical decision making narrative: Patient is evaluated for pain, redness and swelling of his perirectal region. Presentation is consistent with pararectal abscess. He does have a mild leukocytosis of 14.4. His lactate is normal. Initially he is hypertensive and tachycardic however I suspect this is more of a pain reaction than infectious. He is given a dose of IV Unasyn in the ER. CT obtained to rule out any deeper abscess and a it shows a 2.3 cm by 1.3 cm well- defined hypodensity the medial aspect of the right gluteal region along the pos terior aspect of the perineum suggestive of a small abscess. I&D will be performed by myself. Patient will be placed on Bactrim and Keflex and discharged home with a short course of pain medication. He is given a dose of morphine in the ER for pain control. Lab Data Labs: Laboratory Results - last 24 hr 12/28/21 12/28/21 12/28/21 14:05 14:05 14:05 WBC 14.4 H RBC 5.42 Hgb 17.1 H Hct 47.9 MCV 88.4 MCH 31.5 MCHC 35.7 RDW Std Deviation 40.4 RDW Coeff of Juan A 12.5 Plt Count 216 MPV 11.7 Immature Gran % (Auto) 0.400 Neut % (Auto) 71.2 H Lymph % (Auto) 15.9 L Roberts % (Auto) 9.4 Eos % (Auto) 2.6 Baso % (Auto) 0.5 Absolute Neuts (auto) 10.3 H Absolute Lymphs (auto) 2.29 Nucleated RBC % 0 Sodium 138 Potassium 3.8 Chloride 109 H Carbon Dioxide 24.0 Anion Gap 5 BUN 6 L Creatinine 0.84 Estim Creat Clear Calc 121.89 Est GFR (MDRD) Af Amer 127 Est GFR (MDRD) Non-Af 105 BUN/Creatinine Ratio 7.2 L Glucose 93 Lactic Acid 0.8 Calcium 9.9 Radiography Diagnostic Testing: Clinical Impression(s) from Imaging Studies Abdomen/Pelvis CT 12/28/21 13:54 IMPRESSION: 2.3 cm x 1.3 cm well-defined hypodensity in the medial aspect of the right gluteal region along the posterior aspect of the perineum suggestive of a small abscess. Moderate size bilateral inguinal hernias containing fat. Electronically Signed: Toño Marroquin MD at 15:07 EST Reading Location ID and State: [facility] / [place] , Service support , Procedures Other Procedures Procedure(s): Incision and drainage Area anesthetized with 1% lidocaine with epinephrine. Once adequate analgesia was achieved a stab incision used to make 1 cm incision over the area maximal fluctuance. There was immediate expression of foul-smelling white/clayton material. Some of the material was quite thick and caseous so I do question if this could be an infected sebaceous cyst. Area is irrigated and explored with hemostats. Packing was placed. Patient tolerated procedure. Discharge Plan Triage Chief Complaint: Abscess ED Provider: Lena Rolon Dx/Rx/DC Orders Clinical Impression: Abscess, perirectal, Leukocytosis Instructions: ED ABSCESS Deann-Anal IandD Prescriptions: New clindamycin HCl 150 MG capsule 300 mg PO 4X/DAY Qty: 80 RF: 0 oxycodone-acetaminophen [Percocet] 5-325 mg tablet 1 tab PO Q6H PRN (Reason: pain) 3 Days Qty: 10 RF: 0 No Action omeprazole 20 mg capsule,delayed release(DR/EC) 20 mg PO DAILY RF: 0 naproxen 500 MG tablet 500 mg PO BID Qty: 14 RF: 0 Primary Care Provider: Alon Gordon Referrals: Kike Bills MD [STAFF PHYSICIAN] - As Needed Alon Gordon MD [Primary Care Provider] - Activity Restrictions/Additional Instructions: Packing was placed into the abscess. It should fall out on its own but if it does not, it can be removed gently in 3 days Disposition Disposition: Home, Self Care
[2021-12-28] MEDS: Lidocaine 1% (20 ml mdv) 20 ML Vial INFILT (15:57)
[2021-12-28 16:00] VITALS: BP 133/72; PULSE 79; RESP 15; O2SAT 97
== END 2021-12-28 23:59 | disposition home or self-care (01) ==
PROVIDERS: Emergency Provider Emergency Medicine; PCP Family Medicine; Visit Provider Emergency Medicine
DX: K61.1 Rectal abscess (principal); D72.829 Elevated white blood cell count, unspecified; K21.9 Gastro-esophageal reflux disease without esophagitis; F17.210 Nicotine dependence, cigarettes, uncomplicated; Z79.899 Other long term (current) drug therapy
CPT/HCPCS: 46040; 10060; 74177; 80048; 83605; 85025; 96361; 96365; 96375; 99283; J7030; J7050; Q9967; A4216; J0295; J2405

== ENCOUNTER 2022-10-25 12:23 | Emergency (ER) | payer MEDICAID, SELFPAY ==
[2022-10-25 12:24] VITALS: BP 127/86; PULSE 95; RESP 16; TEMP 37; O2SAT 97; BMI 27.1
--- NOTE | 2022-10-25 13:07 | CT_ITS ---
STUDY: CT ABDOMEN AND PELVIS WITH CONTRAST REASON FOR EXAM: Male, 47 years old. Perirectal Abscess RADIATION DOSAGE (If Supplied By Facility): CTDIvol = ( 17.33 ) mGy, DLP = ( 1334.42 ) mGycm TECHNIQUE: Transaxial images were obtained from the dome of the diaphragm to the symphysis pubis without oral contrast. IV 100mL Isovue-300 was administered. Sagittal and coronal images were reconstructed. Individualized dose optimization techniques were used for this CT. COMPARISON: Comparison is made with prior study dated 12/28/2021. FINDINGS: Minimal degree of dependent bibasilar atelectasis. The visualized portions of the heart are within normal limits. There is decreased attenuation of the liver consistent with steatosis. Normal gallbladder and extrahepatic biliary system. Normal spleen. Normal pancreas. Normal bilateral adrenal glands. Normal right kidney. There is a 4.2 cm x 4.1 cm cyst in the lower pole of the left kidney. Normal visualized stomach. Normal small intestine. There are scattered colonic diverticula consistent with diverticulosis. The appendix is visualized and appears normal. Normal abdominal aorta. Normal inferior vena cava. Normal retroperitoneum. Normal urinary bladder. Small bilateral inguinal hernias containing fat more prominent on the right side. Normal osseous structures. CT/Abdomen/Pelvis W IV Cont ONLY IMPRESSION: Fatty infiltration of the liver. Stable left renal cyst. Scattered sigmoid diverticula. Electronically Signed: Toño Marroquin MD at 13:51 EST ,
--- NOTE | 2022-10-25 13:09 | EX.ED.DYSGE1 ---
HPI History of Present Illness Chief Complaint: Abscess Narrative Narrative: 47-year-old male who denies significant past medical history presents with 4 to 5 days of perirectal pain. He is not diabetic. He does not take daily medications. He denies any fevers or chills. No nausea or vomiting. He states he is not having pain with bowel movement but feels pressure mainly on the right side of his buttocks. He is unable to visualize the area but his fianc?e states that she noticed a lot of redness mainly on the right side of his buttocks cleft. He has pain with movement and states that it is difficult for him to sit. [facility] Medical History GERD (gastroesophageal reflux disease) Home Medications omeprazole 20 mg capsule,delayed release 20 mg PO DAILY 04/08/21 [History Last Taken Unknown] amoxicillin 875 mg-potassium clavulanate 125 mg tablet 1 tab PO BID #20 tabs 10/25/22 [Rx Last Taken Unknown] hydrocodone-acetaminophen 5-325mg 5mg-325mg 1 tab PO Q6H PRN pain 3 days #12 tabs 10/25/22 [Rx Last Taken Unknown] Allergy/AdvReac Type Severity Reaction Status Date / Time bacitracin Allergy Rash Verified 10/25/22 12:28 [From Neosporin ([id number])] bacitracin zinc Allergy Rash Verified 10/25/22 12:28 [From Neosporin ([id number])] neomycin sulfate Allergy Rash Verified 10/25/22 12:28 [From Neosporin ([id number])] polymyxin B Allergy Rash Verified 10/25/22 12:28 [From Neosporin ([id number])] Social History Smoking Status: Current every day smoker tobacco type: cigarettes ROS ROS ED ROS Narrative Constitutional: No fever, no chills. HEENT: No sore throat. No neck pain. No loss of vision. No rhinorrhea. Cardiovascular: No chest pain. No palpitations. No pedal edema. Respiratory: No cough, no shortness of breath. Abdominal: No abdominal pain. No nausea. No vomiting. Positive right-sided buttocks pain, perirectal area. No pain with actual bowel movement. Genitourinary: No dysuria. No hematuria. Musculoskeletal: No myalgias. No arthralgias. Neurologic: No headaches. No dizziness. No lightheadedness. Skin: No rash. No change in color. Psychiatric: No depression. No anxiety. EXAM Physical Exam Narrative Exam Narrative: Afebrile. Vital signs noted. Nontoxic-appearing. HEENT: Normocephalic. Atraumatic. PERRL, EOMI. Neck soft and supple. No point tenderness or step off. Cardiovascular: Regular rate and rhythm. No murmurs, rubs, or gallops appreciated. Respiratory: No tachypnea. Lungs clear to auscultation bilaterally. Gastrointestinal: Abdomen soft, nontender, with normoactive bowel sounds. No rebound or guarding. Inspection of the right buttocks cleft does reveal mild induration and tenderness with noted erythema. Upon examination there is now purulent drainage coming from the perirectal area. No rectal tenderness or fluctuance. Neurological: Awake. Alert. Nonfocal, nonlateralizing. Skin: No rash. Normal color. No pallor. Musculoskeletal: No pedal edema. Full range of motion extremities. Const Vital Signs: 10/25/22 12:24 10/25/22 13:48 Temperature 98.6 F Temperature Source Temporal Pulse Rate 95 Respiratory Rate 16 14 Blood Pressure 127/86 H 114/82 H Blood Pressure Mean 99 92 Pulse Ox 97 Oxygen Delivery Method Room Air MDM MDM MDM Narrative Medical decision making narrative: Given the large amount of swelling of the right buttocks and now with purulent drainage, comprehensive work-up was pursued. I will obtain a CBC and basic metabolic panel along with CT imaging with IV contrast to look for a deep perirectal abscess. He was started on Zosyn. CBC shows slightly elevated white count of 13.1, hemoglobin normal at 15.4 with normal platelet count of 296, chloride slightly elevated at 111, electrolytes otherwise unremarkable except for glucose of 110 and normal anion gap/low at 3. CT of the abdomen pelvis shows no mention of a perirectal abscess. I did discuss the patient indirectly with Dr. Gomez who has already reviewed the CT. He states that it is small, and that if incision and drainage needed to be performed could be done. I did look at his prior records and it was performed by the emergency physician. However, this abscess is already draining even with visual inspection. Patient received morphine for analgesia and feels markedly improved. As he already has a draining abscess, he did not want incision and drainage further performed. He will apply warm compresses. He will be placed on Augmentin and will follow-up with general surgery. I feel he can be discharged safely home with follow-up. Return instructions were reviewed. Disposition is discharged in stable condition. Lab Data Attestation: I reviewed the patient's lab results. Labs: Laboratory Results - last 24 hr 10/25/22 10/25/22 13:14 13:14 WBC 13.1 H RBC 5.04 Hgb 15.4 Hct 45.3 MCV 89.9 MCH 30.6 MCHC 34.0 RDW Std Deviation 38.6 RDW Coeff of Juan A 11.9 Plt Count 296 MPV 10.5 Immature Gran % (Auto) 0.600 Neut % (Auto) 69.7 Lymph % (Auto) 19.0 [place] % (Auto) 7.9 Eos % (Auto) 2.4 Baso % (Auto) 0.4 Absolute Neuts (auto) 9.2 H Absolute Lymphs (auto) 2.49 Nucleated RBC % 0 Sodium 140 Potassium 4.2 Chloride 111 H Carbon Dioxide 26.0 Anion Gap 3 L BUN 7 Creatinine 0.95 Estim Creat Clear Calc 106.64 Est GFR (MDRD) Af Amer 109 Est GFR (MDRD) Non-Af 90 BUN/Creatinine Ratio 7.3 L Glucose 110 H Calcium 10.0 Radiography Diagnostic Testing: Clinical Impression(s) from Imaging Studies Abdomen/Pelvis CT 10/25/22 13:07 IMPRESSION: Fatty infiltration of the liver. Stable left renal cyst. Scattered sigmoid diverticula. Electronically Signed: Toño Marroquin MD at 13:51 EST , Discharge Plan Triage Chief Complaint: Abscess ED Provider: Antonino Vo Dx/Rx/DC Orders Clinical Impression: Perirectal abscess, Abscess of gluteal cleft Prescriptions: New amoxicillin-pot clavulanate 875-125 mg tablet 1 tab PO BID Qty: 20 0RF hydrocodone-acetaminophen 5-325 mg tablet 1 tab PO Q6H PRN (Reason: pain) 3 Days Qty: 12 0RF No Action omeprazole 20 mg capsule,delayed release(DR/EC) 20 mg PO DAILY Label Comments: Take 1 capsule by mouth daily before breakfast. 1/2 hr before meal. Primary Care Provider: Care Physician,No Primary Referrals: Kurtis Gomez MD [Med Staff - Active Staff] - 3-5 Days Alon Gordon MD [[facility]] - Disposition Disposition: Home, Self Care
[2022-10-25] MEDS: Morphine 4 MG/ML Syringe IV (13:18)
[2022-10-25 13:26] LABS: Absolute Lymphocyte Count 2.49 X10^3/uL (0.83-4.51); Absolute Neutrophil Count 9.2 X10^3/uL (2.0-7.7); Basophil# 0.05 X10^3/uL; Basophil% 0.4 % (0-1); Eosinophil# 0.31 X10^3/uL; Eosinophils% 2.4 % (0-5); Hematocrit 45.3 % (40-54); Hemoglobin 15.4 g/dL (13.0-16.5); Lymphocyte # 2.49 X10^3/ul (0.83-4.51); Mean Corpuscular Hgb 30.6 pg (27.0-32.0); Mean Corpuscular Volume 89.9 fL (80-94); Mean Platelet Vol. 10.5 fl (6.2-12.0); Monocyte# 1.04 X10^3/uL; Monocyte% 7.9 % (0-10); NRBC Flagged by Analyzer 0 % (0-5); Neutrophil # 9.16 X10^3/uL (2.7-7.7); Neutrophil % 69.7 % (47-70); Platelet Count 296 K/mm3 (150-450); RBC Distribution Width CV 11.9 % (11.6-14.6); RBC Distribution Width SD 38.6 fl (35.1-43.9); Red Blood Count 5.04 M/mm3 (4.6-6.2); White Blood Count 13.1 K/mm3 (4.4-11.0)
[2022-10-25 13:39] LABS: Anion Gap 3 (5-15); BUN 7 mg/dL (7-18); BUN/Creat Ratio 7.3 RATIO (10-20); Chloride 111 mmol/L (98-107); Creatinine, Serum 0.95 mg/dL (0.70-1.30); EST Glomerular Filtration Rate 90 mL/min (>60); Est Glom Filt Rate - Afr Amer 109 mL/min (>60); Estimated Creatinine Clearance 106.64 ml/min; Glucose 110 mg/dL (74-106); Potassium 4.2 mmol/L (3.5-5.1); Sodium Level 140 mmol/L (136-145)
[2022-10-25 13:48] VITALS: BP 114/82; RESP 14
== END 2022-10-25 14:36 | disposition home or self-care (01) ==
PROVIDERS: Emergency Provider Emergency Medicine; Visit Provider Emergency Medicine
DX: L02.31 Cutaneous abscess of buttock (principal); K61.1 Rectal abscess; F17.210 Nicotine dependence, cigarettes, uncomplicated
CPT/HCPCS: 74177; 80048; 85025; 96365; 96375; 99283; J7050; Q9967; A4216

== ENCOUNTER 2023-06-12 15:06 | Emergency (ER) | payer MEDICAID, SELFPAY ==
[2023-06-12 15:07] VITALS: BP 123/83; PULSE 73; RESP 14; TEMP 36.2; O2SAT 98
--- NOTE | 2023-06-12 15:35 | EDS_ITS ---
HPI History of Present Illness Chief Complaint: Back Detail of Chief Complaint: Back injury Informant: patient Narrative Narrative: Patient presents to the emergency department with complaint of back pain after falling down steps. Patient states that he was coming down 5 on carpeted steps last evening around 5 PM when he slipped and fell and slid down his back. Patient denies any pain rating down his legs. He denies numbness or tingling in the extremities. Denies weakness to the extremities. He has been taking ibuprofen and Tylenol. Patient denies any hematuria. Pain worse with certain movements. PFSH PFS Medical History GERD (gastroesophageal reflux disease) Home Medications omeprazole 20 mg capsule,delayed release 20 mg PO DAILY 04/08/21 [History Last Taken Unknown] amoxicillin 875 mg-potassium clavulanate 125 mg tablet 1 tab PO BID #20 tabs 10/25/22 [Rx Last Taken Unknown] hydrocodone-acetaminophen 5-325mg 5mg-325mg 1 tab PO Q6H PRN pain 3 days #12 tabs 10/25/22 [Rx Last Taken Unknown] cyclobenzaprine 10 mg tablet 10 mg PO TID PRN Muscle Spasm #20 TABLETS 06/12/23 [Rx Last Taken Unknown] hydrocodone-acetaminophen 5-325mg 5mg-325mg 1 tab PO Q4H PRN PRN Pain 2 days #10 TABLETS 06/12/23 [Rx Last Taken Unknown] Allergy/AdvReac Type Severity Reaction Status Date / Time bacitracin Allergy Rash Verified 06/12/23 15:07 [From Neosporin ([id number])] bacitracin zinc Allergy Rash Verified 06/12/23 15:07 [From Neosporin ([id number])] neomycin sulfate Allergy Rash Verified 06/12/23 15:07 [From Neosporin ([id number])] polymyxin B Allergy Rash Verified 06/12/23 15:07 [From Neosporin ([id number])] Social History Smoking Status: Current every day smoker tobacco type: cigarettes ROS ROS ED Review of Systems ROS Unobtainable: other Constitutional Constitutional ED: Reports lethargy; Denies chills, fever(s), sweats or weight loss Eyes Eyes: Denies blurry vision, change in vision or diplopia ENT ENT ED: Denies rhinorrhea or sore throat Cardiovascular Cardiovascular: Denies chest pain, orthopnea or racing heartbeat Respiratory/Chest Respiratory/Chest: Denies cough, dyspnea, dyspnea on exertion, orthopnea or sputum Gastrointestinal Gastrointestinal: Denies abdominal pain, diarrhea, nausea or vomiting Genitourinary Genitourinary ED: Denies dysuria, hematuria or urinary frequency Musculoskeletal Musculoskeletal: Reports back pain; Denies arthralgias, myalgias or neck pain Integumentary Denies abscess, Abrasions or rash Neurologic Neurologic: Denies headache(s) or weakness Psychiatric Psychiatric: Denies anxiety, depression or suicidal thoughts Endocrine Endocrinology: Denies polydipsia, polyphagia or polyuria Hematologic/Lymphatic Hematologic/Lymphatic: Denies easy bleeding, easy bruising or lymphadenopathy Allergic/Immunologic Allergic/Immunologic ED: Denies mouth swelling, tongue swelling or urticaria EXAM Physical Exam Const Vital Signs: 06/12/23 15:07 Temperature 97.1 F L Temperature Source Temporal Pulse Rate 73 Respiratory Rate 14 Blood Pressure 123/83 H Blood Pressure Mean 96 Pulse Ox 98 Oxygen Delivery Method Room Air Positive well nourished and well developed General Appearance ED: well developed and NAD HEENT Reports TM's clear and moist mucous membranes normocephalic and atraumatic; Negative for trauma or tenderness Tympanic Membrane ED: Yes TM's clear Eyes PERRL and EOMs intact bilaterally General Eye ED: Negative for pale conjunctiva or scleral icterus Neck no lymphadenopathy, supple and no JVD General: Negative for tenderness Chest Wall inspection of chest normal and palpation of chest normal Chest: Negative for tenderness Resp normal respiratory effort and clear to auscultation bilaterally Effort and Inspection: Negative for respiratory distress or pain with movement Auscultation: Negative for rhonchi, wheezes or diminished lung sounds Cardio regular rate, regular rhythm, S1 normal heart sound, S2 normal heart sound and no murmurs Peripheral Pulses: pulses 2+ throughout GI normal to inspection, nondistended, normoactive bowel sounds, soft to palpation, non-tender, non-distended and no masses Back/Spine no CVA tenderness Back/Spine Narrative: Patient has no evidence of ecchymosis or bruising noted to his back. He has some lower lumbar tenderness on palpation over the L4 and L5 region. Patient al so with tenderness over the right lumbar paraspinal musculature and the right iliac crest. Deep tendon reflexes plus 2 out of 4 bilaterally at the patella Achilles. Patient has normal L5 extension. Patient has normal sensation to light touch. Normal strength Extremity normal to inspection General Extremety ED: Negative for edema General Extremity: Negative for edema Neuro oriented x3, CN's II-XII intact bilaterally, no sensory deficits noted and gait normal Sensorium / Orientation: awake, alert, oriented to person, oriented to place and oriented to time Motor Exam: strength 5/5 throughout and strength abnormal Psych mental status grossly normal Skin no rashes or lesions noted and no wounds MDM MDM MDM Narrative Medical decision making narrative: Patient presents with low back pain after a fall. X-rays of the lumbar spine and pelvis obtained interpreted by myself as no evidence of acute fractures or dislocations. Patient will be given a prescription for few [place] and prescription for Flexeril. He will be given referral to primary care physician for follow-up. He has no radiculopathic signs or symptoms. Patient advised to return if worsening pain, weakness to extremities, change in bowel or bladder function, or condition worsening way. Radiography Diagnostic Testing: Clinical Impression(s) from Imaging Studies Lumbar Spine X-Ray 06/12/23 15:46 IMPRESSION: No evidence of lumbar spinal fracture or spondylolisthesis. Electronically Signed: Isi Roth MD at 16:35 EDT Reading Location ID and State: [address] MD Tel , Service support , Pelvis X-Ray 06/12/23 15:46 IMPRESSION: No evidence of displaced pelvic or hip fracture. Electronically Signed: Isi Roth MD at 16:28 EDT Reading Location ID and State: [address] MD Tel , Service support , 1 view x-ray of pelvis interpreted by myself as no acute fractures or dislocations. Official report from radiology pending. Three-view x-rays of lumbar spine obtained interpreted by myself as no evidence of fracture or dislocation. Official report from radiology pending. Discharge Plan Triage Chief Complaint: Back ED Provider: Ely Burt Dx/Rx/DC Orders Clinical Impression: Back contusion Instructions: ED Back Contusion Prescriptions: New cyclobenzaprine [cyclobenzaprine] 10 mg tablet 10 mg PO TID PRN (Reason: Muscle Spasm) Qty: 20 0RF hydrocodone-acetaminophen [hydrocodone-acetaminophen] 5-325 mg tablet 1 tab PO Q4H PRN PRN (Reason: Pain) 2 Days Qty: 10 0RF No Action omeprazole 20 mg capsule,delayed release(DR/EC) 20 mg PO DAILY Patient Comments: Take 1 capsule by mouth daily before breakfast. 1/2 hr before meal. amoxicillin-pot clavulanate 875-125 mg tablet 1 tab PO BID Qty: 20 0RF hydrocodone-acetaminophen 5-325 mg tablet 1 tab PO Q6H PRN (Reason: pain) 3 Days Qty: 12 0RF Primary Care Provider: Care Physician,No Primary Referrals: Alli Gandara MD [Med Staff - Active Staff] - 5-7 Days Care Physician,No Primary [Primary Care Provider] - Disposition Disposition: Home, Self Care Discharge Date/Time: 06/12/23 16:28
--- NOTE | 2023-06-12 15:46 | RAD_ITS ---
INDICATION: fall, injury EXAMINATION/TECHNIQUE: X-RAY - XR Pelvis 1 or 2 Views COMPARISON: FINDINGS: No acute fracture or dislocation. No destructive bone changes. Joint spaces are well-maintained. Normal alignment. Soft tissues are unremarkable. No radiopaque foreign body or soft tissue gas. RAD/Pelvis 1 or 2 Views IMPRESSION: No evidence of displaced pelvic or hip fracture. Electronically Signed: Isi Roth MD at 16:28 EDT Reading Location ID and State: [id number] / Tel , Service support ,
--- NOTE | 2023-06-12 15:46 | RAD_ITS ---
INDICATION: fall EXAMINATION/TECHNIQUE: X-RAY - XR Spine Lumbar 2 or 3 Views COMPARISON: FINDINGS: VERTEBRAE: Preserved vertebral body height. No fracture. No spondylolisthesis. Preservation of the normal lumbar lordosis. No significant facet arthropathy. DISCS: Disc spaces are maintained. INCLUDED ABDOMEN: Included bowel gas pattern is non-obstructive. RAD/Lumbar Spine 2 or 3 Views IMPRESSION: No evidence of lumbar spinal fracture or spondylolisthesis. Electronically Signed: Isi Roth MD at 16:35 EDT Reading Location ID and State: [id number] / Tel , Service support ,
[2023-06-12 15:54] VITALS: BMI 27.8
[2023-06-12] MEDS: HYDROcodone Bitartrate/Apap 5/325 Tablet PO (16:26)
== END 2023-06-12 16:28 | disposition home or self-care (01) ==
PROVIDERS: Emergency Provider Emergency Medicine; Visit Provider Emergency Medicine
DX: S20.229A Contusion of unspecified back wall of thorax, initial encounter (principal); F17.210 Nicotine dependence, cigarettes, uncomplicated; W10.9XXA Fall (on) (from) unspecified stairs and steps, initial encounter
CPT/HCPCS: 72100; 72170; 99282

== ENCOUNTER 2023-07-16 19:27 | Emergency (ER) | payer MEDICAID, SELFPAY ==
[2023-07-16 19:28] VITALS: BP 145/95; PULSE 106; RESP 18; TEMP 36.6; O2SAT 99; BMI 28.0
--- NOTE | 2023-07-16 19:37 | EDS_ITS ---
HPI History of Present Illness Chief Complaint: Abscess Detail of Chief Complaint: Abscess left inguinal crease Informant: patient Onset/Context/Timing Onset: Days (2 days) Context: Sudden Onset Timing: Continuous Quality: Pain Location: Left inguinal crease Current Severity: Mild Worsened by: Palpation attempt to burst it open . Relieved by: Nothing Associated Symptoms Associated Symptoms: Polyuria, polydipsia and family history of diabetes Narrative Narrative: Patient is a 48-year-old male with history of GERD who presents because of abscess left inguinal area that started 2 days ago. He attempted to express pus from the area. He states it causes more pain. He denies fever, chills night sweats. Denies history diabetes but he does endorse polyuria and polydipsia. There is strong family history of diabetes. He was unaware that he had a yeast infection. Prior similar symptoms: No Recent Illness/Hospitalization: No [facility] Medical History GERD (gastroesophageal reflux disease) Home Medications nystatin 100,000 unit/gram topical powder 1 applic topical TID #30 grams 07/16/23 [Rx Last Taken Unknown] Allergy/AdvReac Type Severity Reaction Status Date / Time bacitracin Allergy Rash Verified 07/16/23 19:28 [From Neosporin ([id number])] bacitracin zinc Allergy Rash Verified 07/16/23 19:28 [From Neosporin ([id number])] neomycin sulfate Allergy Rash Verified 07/16/23 19:28 [From Neosporin ([id number])] polymyxin B Allergy Rash Verified 07/16/23 19:28 [From Neosporin ([id number])] Social History (Updated 07/16/23 @ 19:[address] Tyrell De La Rosa MD) household members: none Smoking Status: Current every day smoker tobacco type: cigarettes substance use type: does not use ROS ROS ED Constitutional Constitutional ED: Denies chills, fever(s), subjective, sweats or weight loss Eyes Eyes: Denies blurry vision, change in vision or diplopia ENT ENT ED: Denies ear pain, rhinorrhea or sore throat Cardiovascular Cardiovascular: Denies chest pain or palpitations Gastrointestinal Gastrointestinal: Denies abdominal pain, nausea or vomiting Genitourinary Genitourinary ED: Denies dysuria, hematuria or urinary frequency Integumentary Reports abscess and rash Endocrine Endocrinology: Reports polydipsia and polyuria Hematologic/Lymphatic Hematologic/Lymphatic: Reports systems reviewed and no addt'l complaints, except as documented EXAM Physical Exam Const Vital Signs: 07/16/23 19:28 Temperature 97.9 F Temperature Source Temporal Pulse Rate 106 H Respiratory Rate 18 Blood Pressure 145/95 H Blood Pressure Mean 111 Pulse Ox 99 Positive well nourished and well developed General Appearance ED: well developed and NAD; Negative for cyanotic, diaphoretic or pallor HEENT Reports moist mucous membranes HEENT Narrative: Head is normocephalic and atraumatic. Ears normal. Nares patent. Posterior pharynx is normal. Eyes PERRL and EOMs intact bilaterally General Eye ED: Negative for pale conjunctiva or scleral icterus Neck no lymphadenopathy, supple and no JVD Resp normal respiratory effort and clear to auscultation bilaterally Cardio regular rate, regular rhythm, S1 normal heart sound, S2 normal heart sound and no murmurs GI normal to inspection, nondistended, normoactive bowel sounds, non-tender, non- distended and no masses; Negative for hepatosplenomegaly Palpation: soft Narrative: Circumcised. Testes centered bilaterally no testicular epididymal tenderness. There is a small left inguinal abscess. Is also a Jacquelyn infection. Since the area is fluctuant will anesthetize area and make a small incision to drain the purulent material. Extremity normal to inspection General Extremety ED: Negative for edema or tenderness General Extremity: Negative for edema Neuro oriented x3, CN's II-XII intact bilaterally and no sensory deficits noted Sensorium / Orientation: alert Motor Exam: strength 5/5 throughout Psych mental status grossly normal Skin No no rashes or lesions noted, No no wounds and skin turgor normal General Skin Exam: Negative for jaundice or pallor MDM MDM MDM Narrative Medical decision making narrative: With family history diabetes polyuria polydipsia and yeast infection will obtain PGT. If elevated will obtain additional labs. We will consent patient for I&D of left inguinal abscess. Lab Data Labs: Laboratory Results - last 24 hr 07/16/23 19:58 POC Glucose 121 H Procedures Other Procedures Procedure(s): Patient prepped draped in a sterile manner. The area was Nestabs by local filtration 1% lidocaine. A 1 cm incision was made using a 15 blade. Very minimal amount of purulent material was noted. Blunt dissection was undertaken with more purulent material. Small cavity approximately half cc of purulent material noted. Patient tolerated procedure without difficulty. Patient has for pain medicine. He was informed since this is superficial treatment is anti-inflammatory since he has no contraindication. Discharge Plan Triage Chief Complaint: Abscess ED Provider: Tyrell De La Rosa Dx/Rx/DC Orders Clinical Impression: Candidal skin infection, Abscess of groin, left, Elevated blood pressure reading Instructions: ED Abscess Incision And Drainage, ED Jacquelyn Skin Infection (Adult), ED Hypertension, To Be Confirmed Prescriptions: New nystatin 100,000 unit/gram powder 1 applic topical TID Qty: 30 0RF Primary Care Provider: Care Physician,No Primary Referrals: Care Physician,No Primary [Primary Care Provider] - Doctor,Your [Non-Staff] - 3-5 Days Activity Restrictions/Additional Instructions: 1. The name of your doctor is located on your insurance card issued to you by [facility]. 2. Contact your doctor for wound check in 2 to 3 days and to have your blood pressure reassessed. Disposition Disposition: Home, Self Care
[2023-07-16] MEDS: Lidocaine 1% (20 ml mdv) 20 ML Vial INFILT (20:03)
[2023-07-16 20:17] LABS: Bedside Glucose 121 mg/dL (74-106)
== END 2023-07-16 21:09 | disposition home or self-care (01) ==
PROVIDERS: Emergency Provider Emergency Medicine; Visit Provider Emergency Medicine
DX: B37.2 Candidiasis of skin and nail (principal); L02.214 Cutaneous abscess of groin; F17.210 Nicotine dependence, cigarettes, uncomplicated; R03.0 Elevated blood-pressure reading, without diagnosis of hypertension; R35.89 Other polyuria; R63.1 Polydipsia
CPT/HCPCS: 10060; 82962; 99282